=== PATIENT | female | born 1950 | race Caucasian/White ===

== ENCOUNTER 2017-03-24 14:12 | Emergency (ER) | payer OTHER, MEDICARE ==
[2017-03-24 16:02] LABS: ABSOLUTE BASOPHIL COUNT 0 /CUMM (0.0-0.2); ABSOLUTE EOSINOPHIL COUNT 0.1 /CUMM (0.0-0.7); ABSOLUTE GRANULOCYTE CT 2.2 /CUMM (1.4-6.5); ABSOLUTE LYMPH COUNT 1.2 /CUMM (1.2-3.4); ABSOLUTE MONOCYTE COUNT 0.8 /CUMM (0.10-0.60); BASOPHIL % 0.4 % (0.0-2.0); EOSINOPHIL % 3.4 % (0-5); GRANULOCYTE % 50.3 % (42.2-75.2); HEMATOCRIT 34.4 % (37-47); MEAN CORPUSCULAR HGB 29.9 PG (27.0-31.0); MEAN CORPUSCULAR HGB CONC 33.2 G/DL (33.0-37.0); MEAN CORPUSCULAR VOLUME 89.8 FL (81.0-99.0); PLATELET COUNT 306 /CUMM (130-400); RBC DISTRIBUTION WIDTH 13.8 % (11.5-14.5); RED BLOOD CELL CT 3.84 /CUMM (4.20-5.40); WHITE BLOOD CELL COUNT 4.4 /CUMM (4.8-10.8)
--- NOTE | 2017-03-24 16:34 | ED GENERAL ADULT ---
History of Present Illness General Chief Complaint: General Adult Stated Complaint: SENT BY DR HUERTA FOR ELAVATED LAB Source: patient Exam Limitations: no limitations Allergies Coded Allergies: NO KNOWN ALLERGIES (04/07/14) Reconcile Medications Alendronate Sodium 70 MG TABLET 1 TAB PO QW OSTEOPROSISI (Reported) in the morning, at least 30 minutes before the first food, beverage, or medication of the day Lisinopril 10 MG TABLET 1 TAB PO DAILY HTN (Reported) Triage Note: SIB DR HUERTA FOR LOW SODIUM OF 123. DENIES ANY COMPLAINTS. FEELS TIRED ALL THE TIME SHE STATES. HAD A VIRAL ILLNESS LAST WEEK. ACTING HER NORMAL SELF PER DAUGHTER. Triage Nurses Notes Reviewed? 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 Patient percent she had viral like symptoms 3 days ago with generalized malaise, body aches and tactile fevers. She reports those symptoms fast. During that timeframe she made sure she drinks a lot of fluids to stay hydrated but did not eat much food. Denies any nausea or vomiting. No diarrhea. Denies abdominal pain chest pain or shortness of breath. Her primary care physician called her today and told her to come in for evaluation secondary to the low sodium level. She was getting outpatient blood work prior to injection. Denies any weakness. No change in vision. (ALEXANDER GARCIA) Vital Signs & Intake/Output Vital Signs & Intake/Output Vital Signs Date Time Temp Pulse Resp B/P B/P Pulse O2 O2 Flow FiO2 Mean Ox Delivery Rate 03/24 1817 97.5 78 20 112/70 03/24 1631 96 Room Air 03/24 1420 98.6 88 16 108/73 96 Room Air Past History Travel History Traveled to [place] past 21 day No Medical History Any Pertinent Medical History? see below for history Cardiovascular: hypertension Musculoskeletal: osteoporosis Surgical History Surgical History: non-contributory Psychosocial History What is your primary language Ivorian Tobacco Use: Never used Family History Hx Contributory? No (ALEXANDER GARCIA) Review of Systems Review of Systems Constitutional: Reports: no symptoms. Comments Review of systems: See HPI, All other systems negative. Constitutional, no chills fever or weight loss HEENT: No visual changes no sore throat no congestion Cardiovascular: No chest pain ,palpitation , orthopnea or ankle swelling Skin, no jaundice no rashes Respiratory: No dyspnea cough sputum or hemoptysis GI: No nausea no vomiting : No dysuria No hematuria Muscle skeletal: no back pain, no neck pain, Neurologic: No numbness no confusion Psych: No stress anxiety or depression,. Heme/endocrine: No bruising no bleeding no polyuria or polydipsia Immunology: No splenectomy or history of AIDS (ALEXANDER GARCIA) Physical Exam Physical Exam General Appearance: well developed/nourished, no apparent distress, alert, awake , comfortable Comments: Well-developed well-nourished person in no acute distress HEENT: Pupils equally round and reactive to light and accommodation. Nose is atraumatic. External auditory canal and Tympanic membranes clear. Pharynx normal. No swelling or edema. Moist oral mucosa. Neck: Supple, no lymphadenopathy, normal range of motion without pain or tenderness Back: Nontender Cardiovascular: Regular rate and rhythms no murmurs rubs or gallops, normal JVP Respiratory: Chest nontender. No respiratory distress.breath sounds clear to auscultation bilaterally Abdomen: Soft, nontender nondistended, no appreciable organomegaly. Normal bowel sounds. No ascites, no rebound or guarding. Extremity: No edema, no calf tenderness to palpation, normal and equal pulses. Neuro: Alert oriented x3, motor sensory normal, cranial nerves II through XII grossly intact. Skin: No appreciable rash on exposed skin, skin is warm and dry. Psych: Mood and affect is normal, memory and judgment is normal. Core Measures ACS in differential dx? No CVA/TIA Diagnosis: No Severe Sepsis Present: No Septic Shock Present: No (ALEXANDER GARCIA) Progress Differential Diagnoses I considered the following diagnoses in my evaluation of the patient: Dehydration, electrolyte abnormality, increased by mouth intake of fluids, Initial ED EKG: none Comments: Sodium came up from 122-127, patient will be discharged home. They will recheck sodium level on Monday. (ALEXANDER GARCIA) Plan of Care: Orders Procedure Date/time Status SODIUM 03/24 1726 Complete COMPREHENSIVE METABOLIC PANEL 03/24 1514 Complete CBC WITHOUT DIFFERENTIAL 03/24 151 Complete Current Medications Sig/Scott Start time Last Medication Dose Stop Time Status Admin Guaifenesin/Codeine 10 ML ONCE ONE 03/24 1800 CAN Phosphate 03/24 1801 (Robitussin AC) Laboratory Tests 03/24/17 1810: 03/24/17 1550: Anion Gap 10, Estimated GFR > 60, BUN/Creatinine Ratio 17.1, Glucose 106 H, Calcium 9.2, Total Bilirubin 0.3, AST 56 H, ALT 56 H, Alkaline Phosphatase 91, Total Protein 7.1, Albumin 3.9, Globulin 3.2, Albumin/Globulin Ratio 1.2, CBC w Diff NO MAN DIFF REQ, RBC 3.84 L, MCV 89.8, MCH 29.9, RDW 13.8, MPV 6.0 L, Gran % 50.3, Lymphocytes % 26.9, Monocytes % 19.0 H, Eosinophils % 3.4, Basophils % 0.4, Absolute Granulocytes 2.2, Absolute Lymphocytes 1.2, Absolute Monocytes 0.8 H, Absolute Eosinophils 0.1, Absolute Basophils 0, PUBS MCHC 33.2 Departure Departure Time of Disposition: 1901 Disposition: HOME OR SELF CARE Condition: Stable Clinical Impression Primary Impression: Hyponatremia Referrals: ILAN MARIE APRN (PCP/Family) Additional Instructions: Follow-up with Dr. huerta on Monday for repeat sodium level. . Return for worsening symptoms or concerns. Make sure you limit your fluid intake as this can make her sodium level lower. Departure Forms: Customer Survey General Discharge Information (ALEXANDER GARCIA) PA/RETAIL SHIFT SUPERVISOR Co-Sign Statement Statement: ED Attending supervision documentation- [X] I saw and evaluated the patient. I have also reviewed all the pertinent lab results and diagnostic results. I agree with the findings and the plan of care as documented in the PA's/RETAIL SHIFT SUPERVISOR's documentation. [] I have reviewed the ED Record and agree with the PA's/RETAIL SHIFT SUPERVISOR's documentation. [] Additions or exceptions (if any) to the PAs/RETAIL SHIFT SUPERVISOR's note and plan are summarized below: [] (ELSA GAMA,ARTUR Wright) Critical Care Note Critical Care Note Critical Care Time: non-applicable (ALEXANDER GARCIA)
[2017-03-24] MEDS ORDERED: LISINOPRIL10 M1 PO (17:07)
[2017-03-24] MEDS ORDERED: ALENDRONATE SOD70 M2 PO (17:08)
[2017-03-24 18:17] VITALS: BP 112/70
== END 2017-03-24 19:17 ==
LOC: ERH 14:12
PROVIDERS: Emergency Medicine
DX: E87.1 Hypo-osmolality and hyponatremia (principal)
CPT/HCPCS: 96360; 96361